=== PATIENT | female | born 1990 | race Caucasian/White ===

== ENCOUNTER 2019-05-17 17:36 | Emergency (ER) | payer MEDICAID ==
[~2019-05-17] VITALS: Ht 170.2 cm; Wt 108.0 kg
--- NOTE | 2019-05-17 17:47 | NUR ---
PATIENT BIB SELF TO ER W/ FINGER PAIN. PT STATES HER RIGHT RING FINGER GOT CAUGHT IN THE DOG'S COLLAR WHEN DOG WAS RUNNING. PATIENT PLACED IN BED 14 FOR FURTHER EVALUATION.
[2019-05-17 17:50] VITALS: BP 113/71
--- NOTE | 2019-05-17 17:51 | NUR ---
PA ZEPHYUR AT BEDSIDE FOR EVAL
--- NOTE | 2019-05-17 17:52 | NUR ---
OWNER MANAGER AT FOR XRAY OF HAND
[2019-05-17] MEDS ORDERED: IBUPROFEN 600 MG TABLET PO ONE ×2 (17:53→18:00)
--- NOTE | 2019-05-17 18:53 | NUR ---
Patient discharged to home in stable condition. Written and verbal after care instructions given. Patient verbalizes understanding of instruction.
== END 2019-05-17 18:55 | disposition home or self-care (01) ==
LOC: ER 17:39
DX: S60.041A Contusion of right ring finger without damage to nail, initial encounter (principal); Z88.0 Allergy status to penicillin; Z88.5 Allergy status to narcotic agent; W23.0XXA Caught, crushed, jammed, or pinched between moving objects, initial encounter; Y93.01 Activity, walking, marching and hiking; Y92.89 Other specified places as the place of occurrence of the external cause; Y99.8 Other external cause status
CPT/HCPCS: 73130-TC

== ENCOUNTER 2019-06-23 11:57 | Emergency (ER) | payer MEDICAID ==
[~2019-06-23] VITALS: Ht 170.2 cm; Wt 101.2 kg
[2019-06-23 12:07] VITALS: BP 124/76
--- NOTE | 2019-06-23 12:41 | NUR ---
Pt awake, alert, oriented, nondistressed, noted lung sounds mild wheezing, MD at bedside with orders
--- NOTE | 2019-06-23 12:42 | NUR ---
Xray at bedside
[2019-06-23] MEDS ORDERED: IPRATROPIUM NEB FS 0.5 MG/2.5 ML AMPUL.NEB ONE (12:47)
[2019-06-23] MEDS ORDERED: ALBUTEROL FS 2.5 MG/3 ML VIAL.NEB ONE (12:47)
[2019-06-23] MEDS ORDERED: ALBUTEROL FS 2.5 MG/0.5 ML VIAL.NEB NEB ONE (13:00)
[2019-06-23] MEDS ORDERED: IPRATROPIUM NEB FS 0.5 MG/2.5 ML AMPUL.NEB NEB ONE (13:00)
--- NOTE | 2019-06-23 14:05 | NUR ---
Patient discharged to home in stable condition. Written and verbal after care instructions given. Patient verbalizes understanding of instruction.
== END 2019-06-23 14:46 | disposition home or self-care (01) ==
LOC: ER 12:01
DX: J40 Bronchitis, not specified as acute or chronic (principal); Z88.0 Allergy status to penicillin; Z88.5 Allergy status to narcotic agent
CPT/HCPCS: 71045; 94640; 99283; J7030

== ENCOUNTER 2023-03-09 18:14 | Emergency (ER) | payer MEDICAID, OTHER ==
[~2023-03-09] VITALS: Ht 175.3 cm; Wt 74.8 kg
--- NOTE | 2023-03-09 18:20 | NUR ---
PATIENT CAME WITH COMPLAINTS OF SOB.ALERT AND ORIENTED.PATIENT CONNECTED TO COUNTER POCKET TRIMMER AND PULSE OXYMETER.BREATHING ON ROOM AIR WITH OUT ANY DISTRESS.ALL SAFTEY PRECAUTIONS AT BED SIDE.AWAITING MD FOR EVAL.
--- NOTE | 2023-03-09 18:25 | NUR ---
IV INSERTED ON LT AC NO 20G ,BLOOD COLLECTED AND BLOOD CULTURE AND SEND TO LAB.
[2023-03-09 18:59] LABS: BASOPHILS % (AUTO) 0.4 % (0.0-2.0); EOSINOPHILS % (AUTO) 0.4 % (0.0-6.0); HEMATOCRIT 39 % (33-45); HEMOGLOBIN 12.6 g/dL (11.5-14.8); LYMPHOCYTES # (AUTO) 0.5 K/uL (0.8-4.8); LYMPHOCYTES % (AUTO) 10.5 % (20.0-44.0); MEAN CORPUSCULAR HGB CONC 33 g/dl (31.0-36.0); MEAN CORPUSCULAR VOLUME 81 fL (82-100); MONOCYTES # (AUTO) 0.5 K/uL (0.1-1.30); MONOCYTES % (AUTO) 10.7 % (2.0-12.0); NEUTROPHILS # (AUTO) 3.7 K/uL (1.8-8.9); PLATELET COUNT (AUTO) 156 K/uL (150-450); RED BLOOD CELL COUNT(AUTO) 4.74 MIL/uL (4.0-5.2); WHITE BLOOD COUNT (AUTO) 4.7 K/uL (4.3-11.0)
[2023-03-09 19:14] LABS: CARBON DIOXIDE 23 mmol/L (21-32); CHLORIDE 102 mmol/L (98-107); CREATININE 0.7 mg/dL (0.6-1.3); GLUCOSE 87 mg/dL (74-106); POTASSIUM 3.2 mmol/L (3.5-5.1); SODIUM SERUM 136 mmol/L (136-145); UREA NITROGEN, BLOOD 11 mg/dL (7-18)
[2023-03-09 19:26] LABS: ALANINE AMINOTRANSFERASE 29 U/L (12-78); ALKALINE PHOSPHATASE 82 U/L (46-116); ASPARTATE AMINOTRANSFERASE 18 U/L (15-37); BILIRUBIN,DIRECT 0.3 mg/dL (0.0-0.2); BILIRUBIN,TOTAL 1.2 mg/dL (0.2-1.0); TOTAL PROTEIN, SERUM 8.1 g/dL (6.4-8.2)
--- NOTE | 2023-03-09 19:30 | NUR ---
URINE CUP PROVIDED TO PATIENT, UNABLE TO PROVIDE URINE AT THIS TIME
--- NOTE | 2023-03-09 20:44 | NUR ---
COVID SWAB COLLECTED AND SENT TO LAB
[2023-03-09] MEDS ORDERED: ONDANSETRON HCL/PF 4 MG/2 ML VIAL ONE (21:17)
[2023-03-09] MEDS ORDERED: ONDANSETRON HCL/PF - ER 4 MG/2 ML VIAL IV ONE (21:30)
--- NOTE | 2023-03-09 22:16 | NUR ---
Patient discharged to home in stable condition. Written and verbal after care instructions given. Patient verbalizes understanding of instruction. IV removed. Catheter intact and site benign. Pressure and 4x4 applied to site. No bleeding noted.
[2023-03-09 22:17] VITALS: BP 118/68; TEMP 98.8; O2SAT 98
== END 2023-03-09 22:18 | disposition home or self-care (01) ==
LOC: ER 18:16
DX: R06.02 Shortness of breath (principal); Z20.822 Contact with and (suspected) exposure to COVID-19; Z88.0 Allergy status to penicillin; Z88.5 Allergy status to narcotic agent
CPT/HCPCS: 99285; 96374; 71045; 87426; 93005; 85025; 80048; 80076; 85378; 36415; 84484; 83880; J2405 ×2; C9803